=== PATIENT | male | born 1990 | race Caucasian/White ===

== ENCOUNTER 2019-11-30 | Emergency (ER) | payer SELFPAY | END 2019-11-30 14:30 | disposition home or self-care (01) | DRG 866 | DX: B34.9 Viral infection, unspecified (principal); I10 Essential (primary) hypertension; F17.210 Nicotine dependence, cigarettes, uncomplicated ==

== ENCOUNTER 2024-01-18 12:38 | Emergency (ER) | payer SELFPAY ==
[2024-01-18] VITALS (8 sets, daily range): BP systolic 121–145; BP diastolic 80–94
[~2024-01-18] VITALS: Ht 162.6 cm; Wt 72.5 kg
[2024-01-18] MEDS ORDERED: SODIUM CHLORIDE 0.9% 1,000 ML IV ONE (13:50)
[2024-01-18] MEDS ORDERED: ONDANSETRON HCl 4 MG/2 ML SDV IV ONE (13:55)
[2024-01-18 14:37] LABS: BASO% 0.3 % (0-3); EOS% 0.1 % (0-8); HEMATOCRIT 48.2 % (39.0-50.0); HEMOGLOBIN 16.1 g/dl (14.0-18.0); IMMATURE GRANULOCYTES 0.1 % (0.0-5.0); LYMPH% 13.7 % (15-41); MEAN CELL VOLUME 89.3 fL CALC (80.0-100.0); MEAN CORPUSCULAR HGB 29.8 pG CALC (26.0-32.0); MEAN CORPUSCULAR HGB CONC 33.4 g/dL CAL (32.0-36.0); MONO% 16.7 % (2-13); NEUT# 6.06 thou/uL (1.82-7.42); NEUT% 69.1 % (42-76); RED BLOOD COUNT 5.4 mill/uL (4.70-6.10); RED CELL DISTRI WIDTH 12.5 % (11.5-15.5)
[2024-01-18 14:54] LABS: ALBUMIN 4.5 g/dL (3.2-5.0); ALKALINE PHOSPHATASE 84 u/l (38-126); ANION GAP 12 (6-22 (CALC)); BUN 12 mg/dL (9-20); BUN/CREATININE RATIO 11 (12-20 (CALC)); CARBON DIOXIDE 23 mmol/l (22-30); CHLORIDE 104 mmol/l (95-108); GFR FOR AFR.AMER. > 60 ML/MIN (>=60 (CALC)); GFR OTHER RACES > 60 ML/MIN (>=60 (CALC)); LIPASE 51 u/l (23-300); POTASSIUM 4.3 mmol/l (3.5-5.1); SGOT/AST 43 u/l (17-59); SODIUM 134 mmol/l (137-146); TOTAL PROTEIN 7.1 g/dL (6.3-8.2)
[2024-01-18 14:55] LABS: BILIRUBIN, TOTAL 0.7 mg/dL (0.2-1.3)
[2024-01-18] MEDS ORDERED: ZOFRAN4 MG/TAB PO (15:46)
[2024-01-18] MEDS ORDERED: MEDDOSEPAK PO (15:46)
[2024-01-18] MEDS ORDERED: ZPAK PO (15:46)
== END 2024-01-18 16:15 | disposition home or self-care (01) | DRG 203 ==
LOC: ED 12:38
PROVIDERS: Nurse Practitioner
DX: J20.8 Acute bronchitis due to other specified organisms (principal); K59.00 Constipation, unspecified; I10 Essential (primary) hypertension; F17.200 Nicotine dependence, unspecified, uncomplicated; Z20.822 Contact with and (suspected) exposure to COVID-19

== ENCOUNTER 2024-11-08 08:57 | Emergency (ER) | payer BC ==
[2024-11-08] VITALS (7 sets, daily range): BP systolic 136–152; BP diastolic 93–102
[~2024-11-08] VITALS: Ht 162.6 cm; Wt 59.0 kg
[~2024-11-08 08:57] MED LIST: MEDDOSEPAK PO; ZOFRAN4 MG/TAB PO; ZPAK PO
[2024-11-08] MEDS ORDERED: KETOROLAC TROMETHAMINE 30 MG/ML SDV IM ONE (10:00)
[2024-11-08] MEDS ORDERED: NAPROXEN500 MG PO (13:29)
== END 2024-11-08 13:48 | disposition home or self-care (01) | DRG 552 ==
LOC: ED 08:57
DX: S16.1XXA Strain of muscle, fascia and tendon at neck level, initial encounter (principal); I10 Essential (primary) hypertension; F17.210 Nicotine dependence, cigarettes, uncomplicated; X58.XXXA Exposure to other specified factors, initial encounter

== ENCOUNTER 2025-01-10 14:27 | Emergency (ER) | payer BC ==
[2025-01-10] VITALS (9 sets, daily range): BP systolic 123–139; BP diastolic 76–96
[~2025-01-10] VITALS: Ht 162.6 cm; Wt 63.6 kg
[~2025-01-10 14:27] MED LIST changes: +NAPROXEN500 MG PO
[2025-01-10] MEDS ORDERED: ASPIRIN 81 MG/TAB PO ONE (14:45)
[2025-01-10 15:12] LABS: BASO% 0.3 % (0-3); EOS% 1.3 % (0-8); HEMATOCRIT 49.8 % (39.0-50.0); HEMOGLOBIN 16.5 g/dl (14.0-18.0); IMMATURE GRANULOCYTES 0.2 % (0.0-5.0); LYMPH% 24.7 % (15-41); MEAN CORPUSCULAR HGB 30.2 pG CALC (26.0-32.0); MEAN CORPUSCULAR HGB CONC 33.1 g/dL CAL (32.0-36.0); MONO% 10.7 % (2-13); NEUT# 5.99 thou/uL (1.82-7.42); NEUT% 62.8 % (42-76); RED BLOOD COUNT 5.47 mill/uL (4.70-6.10)
[2025-01-10 15:23] LABS: ALBUMIN 4.8 g/dL (3.2-5.0); ALKALINE PHOSPHATASE 63 u/l (38-126); ANION GAP 13 (6-22 (CALC)); BILIRUBIN, TOTAL 0.8 mg/dL (0.2-1.3); BUN 15 mg/dL (9-20); BUN/CREATININE RATIO 12 (12-20 (CALC)); CARBON DIOXIDE 26 mmol/l (22-30); CHLORIDE 103 mmol/l (95-108); CREATININE 1.2 mg/dL (0.7-1.3); ESTIMATED GFR 82 ML/MIN (>=90 (CALC)); SGOT/AST 57 u/l (17-59); SODIUM 138 mmol/l (137-146)
[2025-01-10] MEDS ORDERED: KETOROLAC TROMETHAMINE 30 MG/ML SDV IV ONE (16:15)
[2025-01-10 16:20] LABS: URINE BILIRUBIN - DIPSTICK Negative (NEGATIVE); URINE BLOOD DIPSTICK Negative (NEGATIVE); URINE GLUCOSE - DIPSTICK Negative (NEGATIVE); URINE KETONE Trace mg/dL (NEGATIVE); URINE LEUK ESTERASE Negative (NEGATIVE); URINE NITRITE - DIPSTICK Negative (Negative); URINE PROTEIN - DIPSTICK Trace mg/dL (NEG-TRACE); URINE SPECIFIC GRAVITY 1.025; URINE UROBILINOGEN - DIPSTICK 0.2 E.U./dL (0.2)
[2025-01-10 16:21] LABS: URINE COLOR Yellow
[2025-01-10] MEDS ORDERED: ORPHENADRINE CITRATE 30 MG/ML AMP IV ONE (17:25)
[2025-01-10] MEDS ORDERED: NAPROXEN500 MG PO (18:18)
[2025-01-10] MEDS ORDERED: METHOCARBAMOL500 MG PO (18:18)
== END 2025-01-10 18:50 | disposition home or self-care (01) | DRG 313 ==
LOC: ED 14:27
PROVIDERS: Nurse Practitioner
DX: R07.89 Other chest pain (principal); I10 Essential (primary) hypertension; F17.200 Nicotine dependence, unspecified, uncomplicated; Z20.822 Contact with and (suspected) exposure to COVID-19
CPT/HCPCS: J2360